=== PATIENT | female | born 1970 | race Caucasian/White ===

== ENCOUNTER 2016-08-21 14:43 | Emergency (ER) | payer MEDICAID ==
[~2016-08-21] VITALS: Ht 165.1 cm; Wt 74.9 kg
[~2016-08-21 14:43] MED LIST: ALBU6.7H INH; CYCL5TAB PO; FLUO20CA19 PO; OMEP-110 PO; OXYC-302 PO; OXYC5CAP4 PO; ZOLP5TAB6 PO
[2016-08-21 14:46] VITALS: BP 158/74
== END 2016-08-21 16:30 | disposition home or self-care (01) ==
LOC: ED 16:27
DX: S80.11XA Contusion of right lower leg, initial encounter (principal); X58.XXXA Exposure to other specified factors, initial encounter; Y93.89 Activity, other specified; Y92.89 Other specified places as the place of occurrence of the external cause; Y99.8 Other external cause status
CPT/HCPCS: 29505

== ENCOUNTER 2019-05-30 12:34 | Emergency (ER) | payer MEDICAID ==
[~2019-05-30] VITALS: Ht 165.1 cm; Wt 78.9 kg
[~2019-05-30 12:34] MED LIST changes: -ALBU6.7H INH; +ALBU6.7H8 INH; +OXYC5CAP2 PO; -OXYC5CAP4 PO
[2019-05-30 12:38] VITALS: BP 126/97
[2019-05-30] MEDS ORDERED: ACETAMINOPHEN 325 MG TABLET ONE (13:16)
[2019-05-30] MEDS ORDERED: IBUPROFEN 200 MG TABLET ONE ×2 (13:17→13:20)
[2019-05-30] MEDS ORDERED: IBUPROFEN 200 MG TABLET PO ONE (13:30)
[2019-05-30] MEDS ORDERED: ACETAMINOPHEN 325 MG TABLET PO ONE (13:30)
[2019-05-30 14:05] LABS: RAPID INFLUENZA A POSITIVE (Negative); RAPID INFLUENZA B Negative (Negative)
== END 2019-05-30 14:31 | disposition home or self-care (01) ==
LOC: ED 12:45
DX: J10.1 Influenza due to other identified influenza virus with other respiratory manifestations (principal); K21.9 Gastro-esophageal reflux disease without esophagitis; R00.0 Tachycardia, unspecified
CPT/HCPCS: 71046; 87400; 93005; 99285